=== PATIENT | female | born 1975 | race Caucasian/White ===

== ENCOUNTER 2021-01-15 18:03 | Inpatient (IN) | payer OTHER ==
[~2021-01-15] VITALS: Ht 167.6 cm; Wt 73.9 kg
[2021-01-15] MEDS ORDERED: LOSARTAN-HCTZ1 EACH (18:18)
[2021-01-15] MEDS ORDERED: ALPRAZOLAM ODT1 MG (18:19)
[2021-01-15] MEDS ORDERED: FLAGYL500MG (18:19)
[2021-01-15] MEDS ORDERED: BUSPIRONE HCL7.5 MG (18:19)
[2021-01-15] MEDS ORDERED: PEPCID AC20 MG (18:20)
[2021-01-21] MEDS ORDERED: INTESTINEX680 M1 PO (15:47)
[2021-01-21] MEDS ORDERED: LEVSIN/SL0.125 MG SL (15:48)
== END 2021-01-21 20:08 | disposition home or self-care (01) | DRG 392 ==
LOC: ER 18:03 → SURH 22:35
PROVIDERS: ADMIT Surgery; ATTEND Surgery
PROC: 02HV33Z Insertion of Infusion Device into Superior Vena Cava, Percutaneous Approach (ICD-10-PCS; principal; 2021-01-16)
PROC: 3E04328 Introduction of Oxazolidinones into Central Vein, Percutaneous Approach (ICD-10-PCS; 2021-01-16)
DX: K57.32 Diverticulitis of large intestine without perforation or abscess without bleeding (principal); I10 Essential (primary) hypertension; F41.9 Anxiety disorder, unspecified; M65.4 Radial styloid tenosynovitis [de Quervain]